=== PATIENT | female | born 1950 | race Asian ===

== ENCOUNTER 2018-09-13 08:26 | Day surgery (SDC) | payer OTHER | END 2018-09-13 11:20 | disposition home or self-care (01) | LOC: OR 08:26 | DX: Z53.8 Procedure and treatment not carried out for other reasons (principal); M54.17 Radiculopathy, lumbosacral region; M96.1 Postlaminectomy syndrome, not elsewhere classified; M15.9 Polyosteoarthritis, unspecified; R51 Headache | CPT/HCPCS: 36415; 85651; 86140; J2001 ==

== ENCOUNTER 2018-09-20 09:32 | Day surgery (SDC) | payer OTHER ==
[~2018-09-20] VITALS: Ht 162.6 cm; Wt 79.4 kg
[2018-09-20 10:51] LABS: PARTIAL THROMBOPLASTIN TIME 26.2 SECONDS (24.5-33.6)
== END 2018-09-20 13:00 | disposition home or self-care (01) ==
LOC: OR 09:32
PROVIDERS: Pain Medicine Interventional Pain Medicine
PROC: 3E0T3BZ Introduction of Anesthetic Agent into Peripheral Nerves and Plexi, Percutaneous Approach (ICD-10-PCS; principal; 2018-09-20)
DX: M25.562 Pain in left knee (principal); M17.12 Unilateral primary osteoarthritis, left knee; Z79.01 Long term (current) use of anticoagulants
CPT/HCPCS: 85610; 85730; J2001

== ENCOUNTER 2018-10-25 10:49 | Day surgery (SDC) | payer OTHER ==
[~2018-10-25] VITALS: Ht 165.1 cm; Wt 86.2 kg
== END 2018-10-25 13:05 | disposition home or self-care (01) ==
LOC: OR 10:49
PROC: 3E0T3BZ Introduction of Anesthetic Agent into Peripheral Nerves and Plexi, Percutaneous Approach (ICD-10-PCS; principal; 2018-10-25)
DX: M25.562 Pain in left knee (principal); M17.12 Unilateral primary osteoarthritis, left knee
CPT/HCPCS: J2001

== ENCOUNTER 2018-12-05 10:59 | Day surgery (SDC) | payer OTHER | END 2018-12-05 12:40 | disposition home or self-care (01) | LOC: OR 10:59 | PROC: 3E0T3TZ Introduction of Destructive Agent into Peripheral Nerves and Plexi, Percutaneous Approach (ICD-10-PCS; principal; 2018-12-05) | DX: M25.562 Pain in left knee (principal); M17.12 Unilateral primary osteoarthritis, left knee | CPT/HCPCS: J2001 ==